=== PATIENT | female | born 1985 | race Caucasian/White ===

== ENCOUNTER 2018-02-26 05:57 | Inpatient (IN) ==
[2018-02-26] MEDS ORDERED: Metoclopramide 10 MG/2 ML VIAL IVP ONE (05:58)
[2018-02-26] MEDS ORDERED: Famotidine 20 MG/2 ML VIAL IVP ONE (05:58)
[2018-02-26] MEDS ORDERED: CeFAZolin Premix DUPLEX 2,000 MG/50 ML BAG IVPB ONE (05:58)
[2018-02-26] MEDS ORDERED: Ringers Solution, Lactated 1,000 ML IVC SCH ×2 (06:00→07:15)
[2018-02-26] MEDS ORDERED: Ringers Solution, Lactated 1,000 ML ONE (06:11)
[2018-02-26 06:37] LABS: Basophils % 0.4 %; Eosinophils % 0.4 %; Hematocrit 35.3 % (35.3-44.9); Immature Granulocytes % 0.5 % (0-4); Lymphocytes # 1.8 K/mcL (0.6-4.6); Lymphocytes % 21.7 %; Mean Corpuscular Hemoglobin 31.3 pg (28.0-33.3); Mean Corpuscular Volume 91.9 fL (83.0-100.0); Mean Platelet Volume 11.5 fL (9.4-12.4); Monocytes # 0.7 K/mcL (0.0-1.3); Monocytes % 8.1 %; Neutrophils # 5.6 K/mcL (1.6-8.9); Platelet Count 110 K/mcL (140-400); Red Blood Count 3.84 M/mcL (3.82-4.97); Red Cell Distribution Width 13.8 % (11.5-14.5); Segmented Neutrophils % 68.9 %
[2018-02-26 06:58] LABS: Amphetamine Screen,Urine Negative ng/mL (Cutoff=1000); Barbiturate Screen,Urine Negative ng/mL (Cutoff=200); Benzodiazepines Screen,Urine Negative ng/mL (Cutoff=300); Cannabinoid Screen,Urine Negative ng/mL (Cutoff = 50); Cocaine Screen,Urine Negative ng/mL (Cutoff= 300); Opiate Screen,Urine Negative ng/mL (Cutoff=300); Phencyclidine Screen,Urine Negative ng/mL (Cutoff=25)
--- NOTE | 2018-02-26 07:00 | OB/GYN History & Physical ---
Date of Encounter: 02/26/18 Time of Encounter: 06:58 Assessment and Plan (1) 38 weeks gestation of Current visit: Yes Status: Acute (2) Marginal placenta previa Current visit: Yes Status: Acute Informed consent previously obtained for primary section. All questions answered. History of Present Illness Chief complaint: scheduled c/s for placenta previa HPI: Ms. Leung is a 32 year old female G 2 P 1-0-0-1 at 38 0/7 weeks presents to labor and delivery for scheduled for marginal placenta previa. She has not had any vaginal bleeding, contractions, or leaking fluid. She reports good movement. A neg GBS negative Rubella immune Past Med Surg Social Fam HX - Past Medical History Source: patient Medical history: no medical history Psychiatric history: no psych history - Past Surgical History Surgical History: no surgical history Additional surgical history: EGD, Colonoscopy - Social History Smoking Status: Never smoker Alcohol use: none Drug use: none - Family History Father Adopted: No Family Member Ethnicity: Non- Living Status: Still Living Hx Family Cardiac Disorders: Yes (hypertension) Hx Family Respiratory Disorders: No Hx Family Cancer: No Hx Family GI Disorders: No Hx Family Genitourinary Disorders: No Hx Family Endocrine Disorder: No Hx Family Musculoskeletal Disorders: No Hx Family Neuromuscular Disorders: No Hx Family Neurologic Disorders: No Hx Family HEENT Disorders: No Hx Family Autoimmune Disorders: No Hx Family Reproductive Disorders: No Hx Family Psychosocial Disorders: No Hx Family Medical Disorders: No Obstetrical History - Pregnancies : 2 Para: 1 - History/Complications History/Complications: Placenta previa with this . RH negative-Rhogam received. Medications and Allergies Cetirizine HCl [Zyrtec] 10 mg PO DAILY 11/11/15 [History] Methylcellulose [Citrucel] 500 mg PO 11/11/15 [History] Pnv95/Ferrous Fumarate/FA [ Vitamin Tablet] 1 each PO DAILY 11/11/15 [History] Breast Pump [BREAST PUMP] 1 each .ROUTE AD #1 each 11/12/15 [Rx] Allergy/AdvReac Type Severity Reaction Status Date / Time Sulfa (Sulfonamide AdvReac Nausea Verified 11/11/15 05:26 Antibiotics) Review of System OB All systems PM: reviewed and no additional remarkable complaints except as stated Exam - Constitutional Constitutional: well developed, well nourished, no acute distress, average body habitus - HEENT HEENT: EOMI - Lungs Respiratory exam: CTAB - Cardiovascular Cardiovascular exam: RRR - Abdomen Abdomen: Present: bowel sounds normal, gravid, non tender - Extremities Extremities exam: normal inspection, warm Results Result Diagrams: 02/26/18 06:20 Abnormal lab results Plt Count 110 K/mcL (140-400) L 02/26/18 06:20 All other labs normal. - VTE Reasons for not Prescribing Prophylaxis: Treatment not Indicated - Low risk for VTE
--- NOTE | 2018-02-26 07:05 | Anesthesia Evaluation PreOp ---
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 History: Denies Any Significant HX Other Medical History: GERD, Other (Posterior placenta previa, history unexplained nausea) Anesthesia History: No Prior Anesthetic Complications, Past Anesthesia (EGD, Colonoscopy, previous epidural) : Yes Alcohol Use: none Drug use: none Medications and Allergies Cetirizine HCl [Zyrtec] 10 mg PO DAILY 11/11/15 [History] Methylcellulose [Citrucel] 500 mg PO 11/11/15 [History] Pnv95/Ferrous Fumarate/FA [ Vitamin Tablet] 1 each PO DAILY 11/11/15 [History] Breast Pump [BREAST PUMP] 1 each .ROUTE AD #1 each 11/12/15 [Rx] Allergy/AdvReac Type Severity Reaction Status Date / Time Sulfa (Sulfonamide AdvReac Nausea Verified 11/11/15 05:26 Antibiotics) - Meds/Allergy Pre-op Review Medications Reviewed: Yes Allergies Reviewed: Yes Beta Blockers on Current Med List: No Anesthesia Results - Labs 02/26/18 06:20 Anesthesia Exam BP 103/61 P 112 R 16 T 97.7 FHT 140s Height: 5'4" Weight: 80.8kg NPO (# of Hours): 12 hrs solids, 7 hrs water Pain Scale: 0 Pain Scale Used: Numeric (1 - 10) - HEENT Pupil (Motor): Pupils equal Mallampati: II Teeth: Normal Oral Opening: Greater than 3 - ROLLING MACHINE OPERATOR AUTOMATIC LOC: Oriented 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
[2018-02-26] MEDS ORDERED: Ondansetron 4 MG/2 ML VIAL IVP ONE (07:11)
[2018-02-26] MEDS ORDERED: *HR* OxyCODONE Immed Rel 5 MG TABLET PO PRN ×2 (07:11→11:21)
[2018-02-26] MEDS ORDERED: *HR* Promethazine 25 MG/ML VIAL IVP PRN ×2 (07:11→08:42)
[2018-02-26] MEDS ORDERED: Acetaminophen IV 1,000 MG/100 ML INFUS..BTL IVPB ONE ×2 (07:11→08:42)
[2018-02-26] MEDS ORDERED: *HR* Meperidine 25 MG/ML SYRINGE IVP PRN (07:11)
[2018-02-26] MEDS ORDERED: *HR* HYDROmorphone (PF) 1 MG/ML SYRINGE IVP PRN (07:11)
[2018-02-26] MEDS ORDERED: Bupivacaine/PF 0.75% in Dex 2 ML AMPUL INFILT ONE (07:27)
[2018-02-26] MEDS ORDERED: *HR* Morphine Sulfate/PF 10 MG/10 ML AMPUL ONE (07:38)
[2018-02-26] MEDS ORDERED: EPHEDrine 50 MG/ML VIAL ONE (07:50)
--- NOTE | 2018-02-26 07:56 | Anesthesia Procedures ---
Date of Encounter: 02/26/18 Time of Encounter: 07:44 Procedures: Anesthesia - Epidural/Spinal Patient ID/Chart reviewed: Yes Patient examined: Yes OB Eval: Gestational age: 38 weeks OB Eval: : 2 OB Eval: Hx Para: 1 OB Eval: Contractions: Non-stressed pattern Consent Obtained: Yes Supplemental Oxygen: None/Room Air Site Prep: Aseptic Technique, Sterile prep and drape, Povidone-Iodine 1% Patient position: upright Local Anesthetic: Lidocaine 1% Amount of Local Anesthetic used: 3 Interspace Used: L3-L4 Loss of Resistance (COSTA): No Blood: No CSF: Yes Paresthesia: No Spinal Needle Gauge: 25 Spinal Dose: Bupivicaine 0.75% 1.6ml Morphine 300mcg Procedure: Intrathecal dose administered 1st pass in upright position, positive CSF, without any immediate noted complications. Supine for procedure. VSS Vitals + FHT's: See anesthesia record
[2018-02-26] MEDS ORDERED: *HR* Oxytocin 10 UNIT/ML VIAL IM ONE ×2 (07:59→08:33)
[2018-02-26] MEDS ORDERED: *HR* OxyCODONE/APAP 5/325 TABLET PO PRN (08:42)
[2018-02-26] MEDS ORDERED: *HR* Morphine 2 MG/ML SYRINGE IVP PRN (08:42)
[2018-02-26] MEDS ORDERED: Ondansetron 4 MG/2 ML VIAL IVP PRN ×2 (08:42→11:21)
--- NOTE | 2018-02-26 08:58 | OB/GYN Procedure Note ---
Section - Date of procedure: 02/26/18 Preop diagnosis: other (marginal placenta previa) Post-op diagnosis: same Procedure: primary low transverse Surgeon: Basia Nagy Blood Loss: 300 Was there an medical assistant present: Yes Well Logging Captain: Krystyna Timmons Anesthesiologist: Kylie Rodgers Anesthesia Type: Spinal section complications: none Disposition: L&D Recovery Room Specimens: Placenta, Cord blood - (s) A Infant Delivery Date: 02/26/18 Delivery Time: 08:06 Presentation: vertex Gender: Male Viability: Viable Pounds: 6 Ounces: 1 Gram Weight: 2.755 kg at 1 minute: 9 at 5 minutes: 9 Specimens collected: cord blood Placenta: spontaneous Cord: nuchal cord, 3 umbilical vessels, nuchal reduced - Narrative Narrative: Patient was taken to the operative suite and placed under spinal anesthetic. She was then prepped and draped in normal sterile fashion in the dorsal supine position. Timeout was then performed. Antibiotics were given at room time. SCDs are on and active. Pfannenstiel skin incision is then made and carried through to underlying layer of fascia with the Bovie. The fascia was then incised in the midline and incision extended laterally with the Spears scissors. The fascia was tented up and dissected off the rectus muscles sharply. The rectus muscles were in the midline and the peritoneum was tented up and entered sharply with the Metzenbaum scissors. The peritoneal incision was then extended bluntly. The bladder blade was then inserted and the vesicouterine peritoneum was entered sharply. Bladder flap was created digitally. A low transverse uterine incision was then made. The infant vertex was brought to the incision and the infant was delivered using fundal pressure. There was a nuchal cord times 2 that was easily reduced. Cord was clamped and cut. Infant was handed to waiting nursery staff. Cord blood was collected. Placenta delivered spontaneously complete and intact with a three-vessel cord. The uterus was cleared of all clots and debris using moist laparotomy sponge. The uterine incision was then closed using 0 Vicryl in a running locked fashion. A second layer of the same suture was used to obtain excellent hemostasis. The abdomen was then cleared of all clots and debris using copious irrigation. The fascial incision was then closed using 0 Vicryl in a running fashion. The skin was closed using 4-0 Vicryl in a subcuticular fashion. Steri-Strips and sterile dressing are then placed. Mother and taken to recovery in stable condition.
[2018-02-26] MEDS ORDERED: Oxytocin 20 units/ LR 1000 mL 20 UNIT/1,000 ML BAG IVC ONE ×2 (09:40→10:38)
[2018-02-26] MEDS ORDERED: Naloxone 0.4 MG/ML INJ IVP PRN (11:21)
[2018-02-26] MEDS ORDERED: Rho Immune Globulin 1,500 UNIT SYRINGE IM PRN (11:21)
[2018-02-26] MEDS ORDERED: Acetaminophen 325 MG TABLET PO PRN (11:21)
[2018-02-26] MEDS ORDERED: Oxytocin 20 units/ LR 1000 mL 20 UNIT/1,000 ML BAG IVC SCH ×2 (11:21)
[2018-02-26] MEDS ORDERED: Sennosides 8.6 MG TABLET PO PRN (11:21)
[2018-02-26] MEDS ORDERED: Metoclopramide 10 MG/2 ML VIAL IVP PRN (11:21)
[2018-02-26] MEDS ORDERED: Prenatal Vit/FA 1 EACH TABLET PO SCH ×2 (11:21→21:00)
[2018-02-26] MEDS: Ibuprofen 600 MG TABLET PO PRN ×2 (12:58→19:00)
[2018-02-26] MEDS ORDERED: Psyllium 1 PACKET POWD.PACK PO SCH (21:00)
[2018-02-26] MEDS ORDERED: Loratadine 10 MG TABLET PO SCH (21:00)
--- NOTE | 2018-02-26 21:13 | Anesthesia Evaluation Post Op ---
Date of Encounter: 02/26/18 Time of Encounter: 10:00 - Vital Signs Vital Signs: 97.6 92 112/68 98% RA - Lungs Lungs: Clear Ascult./Percussion - Airway Airway: Non-obstructed - Cardiovascular Regular Rate - Mental Status Mental Status: Alert & Oriented, Answers Appropriately - Pain Pain Scale: 0 - Nausea Vomiting Nausea Vomiting: Not Present - Hydration Hydration: NPO, Doll catheter - Discharge PostOp Status: Transfer Patient to floor
[2018-02-26] MEDS: Simethicone 80 MG TAB.CHEW PO PRN (21:35)
[2018-02-27] MEDS: *HR* OxyCODONE/APAP 5/325 TABLET PO PRN ×2 (03:04→12:19)
[2018-02-27] MEDS: Ibuprofen 600 MG TABLET PO PRN (08:09)
[2018-02-27 08:49] VITALS: BP 114/73
--- NOTE | 2018-02-27 11:53 | Discharge Summary ---
Date of Encounter: 02/27/18 Time of Encounter: 11:49 - Discharge Diagnosis (1) Status post primary low transverse section Priority: Primary Status: Acute Comments: Continue routine postop/ care discharge home today per patient request follow up with Dr. Rayo in 2 weeks for incision check (2) Breast feeding status of mother Priority: Secondary Status: Acute Comments: support prn - Discharge Medications Prescriptions: OxyCODONE/APAP 5/325 [Percocet 5/325 MG] 1 each PO Q4HR PRN 5 Days #30 tablet PRN Reason: Moderate pain 4-6 Ibuprofen [Motrin] 600 mg PO Q6HR PRN #60 tablet PRN Reason: Cramping Home Medications: Pnv95/Ferrous Fumarate/FA [ Vitamin Tablet] 1 each PO DAILY 11/11/15 [History] Docusate [Colace] 100 mg PO BID capsule 02/27/18 [Rx] Ibuprofen [Motrin] 600 mg PO Q6HR PRN #60 tablet 02/27/18 [Rx] OxyCODONE/APAP 5/325 [Percocet 5/325 MG] 1 each PO Q4HR PRN 5 Days #30 tablet 02/27/18 [Rx] Simethicone [Gas-X] 80 mg PO TID PRN tab.chew 02/27/18 [Rx] Allergies/Adverse Reactions: Allergy/AdvReac Type Severity Reaction Status Date / Time Sulfa (Sulfonamide AdvReac Nausea Verified 11/11/15 05:26 Antibiotics) Data Procedures and tests throughout hospitalization: Laboratory Tests 02/26/18 02/26/18 02/26/18 06:20 06:20 06:20 WBC 8.2 RBC 3.84 Hgb 12.0 Hct 35.3 MCV 91.9 MCH 31.3 MCHC 34.0 RDW 13.8 Plt Count 110 L MPV 11.5 Immature Gran % 0.5 Seg Neutrophils % 68.9 Lymphocytes % 21.7 Monocytes % 8.1 Eosinophils % 0.4 Basophils % 0.4 Neutrophils # 5.6 Lymphocytes # 1.8 Monocytes # 0.7 Eosinophils # 0.0 Basophils # 0.0 Urine Opiates Screen Negative Ur Barbiturates Screen Negative Ur Phencyclidine Scrn Negative Ur Amphetamines Screen Negative U Benzodiazepines Scrn Negative Urine Cocaine Screen Negative U Marijuana (THC) Screen Negative Ur Drug Screen Interp See Below Hep Bs Antigen Nonreactive Screen Baby's Blood Type Mother's Blood Type Rhogam Indicated Rhogam Req for Mother 02/26/18 09:20 WBC RBC Hgb Hct MCV MCH MCHC RDW Plt Count MPV Immature Gran % Seg Neutrophils % Lymphocytes % Monocytes % Eosinophils % Basophils % Neutrophils # Lymphocytes # Monocytes # Eosinophils # Basophils # Urine Opiates Screen Ur Barbiturates Screen Ur Phencyclidine Scrn Ur Amphetamines Screen U Benzodiazepines Scrn Urine Cocaine Screen U Marijuana (THC) Screen Ur Drug Screen Interp Hep Bs Antigen Screen NEGATIVE Baby's Blood Type A RH POSITIVE Mother's Blood Type A RH NEGATIVE Rhogam Indicated YES Rhogam Req for Mother 1 Labs on day of discharge: Labs from last 24 hours 02/26/18 09:20 Screen NEGATIVE Baby's Blood Type A RH POSITIVE Mother's Blood Type A RH NEGATIVE Rhogam Indicated YES Rhogam Req for Mother 1 Date of admission: 02/26/18 05:57 Primary care physician: Angie Hernandez MD Discharging clinician: Bailey Moreno Anticipated date of discharge: 02/27/18 - Patient Status Disposition: Home, Self-Care Condition: Good Functional capacity at discharge: independent ambulation - Discharge Instructions Follow Up With: Angie Hernandez MD [Primary Care Provider] - Basia Rayo DO [Partnered Physician] - - Diet and Activity Activity: increase activity as tolerated Diet: regular diet Hospital Course Procedures: OARRS report reviewed by ROM Mcdaniel Reason for admission: section Delivery: section Episiotomy: none Laceration: none Other procedures: none complications: none Discharge diagnosis: IUP at term delivered [place] baby: male (breast feeding) Time Attestation: Total time spent providing and/or coordinating discharge services: Time Spent: Less than 30 minutes - VTE Reasons for not Prescribing Prophylaxis: Treatment not Indicated - Low risk for VTE Documentation of Mechanical Device: Intermittent pneumatic compression device Exam - Constitutional Vitals: Temp Pulse Resp BP Pulse Ox 98.5 F 99 14 114/73 97 02/27/18 08:48 02/27/18 08:48 02/27/18 08:48 02/27/18 08:48 02/27/18 08:48 General appearance IM: A&O X 3, pleasant, answers questions appropriately - Respiratory Respiratory exam: Present: CTAB - Cardiovascular Cardiovascular exam IM: Present: RRR, +S1, +S2 - GI/Abdominal GI/Abdominal exam IM: normal bowel sounds Incision: normal, dry, dressed (medipore dressing) - Uterine Tone: Firm Uterus Position: At Umbilicus, Midline - Extremities Exam Extremities exam IM: Present: full ROM, normal capillary refill, normal inspect ion - Neurological Exam Neurological exam: alert, oriented X3, reflexes normal
[2018-02-27] MEDS: Simethicone 80 MG TAB.CHEW PO PRN (12:20)
== END 2018-02-27 15:10 | disposition home or self-care (01) | DRG 788 ==
LOC: 1NENULAB 05:57 → 1NENUOBS 11:20
PROVIDERS: ADMIT Obstetrics & Gynecology; ATTEND Obstetrics & Gynecology

== ENCOUNTER → 2021-01-13 17:52 | Observation (INO) | END | disposition home or self-care (01) | LOC: 1NENULAB | PROVIDERS: ADMIT Registered Nurse; ATTEND Registered Nurse ==

== ENCOUNTER 2021-01-13 21:32 | Inpatient (IN) ==
[~2021-01-13 21:32] MED LIST: Famotidine 20 MG/2 ML VIAL IVP PRN; Lidocaine 1% 20 ML MDV INFILT PRN; Metoclopramide 10 MG/2 ML VIAL IVP PRN; Naloxone 0.4 MG/ML INJ IVP PRN
[2021-01-13] MEDS ORDERED: *HR* Nalbuphine 10 MG/ML AMPUL ONE (21:35)
[2021-01-13] MEDS ORDERED: Ringers Solution, Lactated 1,000 ML ONE (21:36)
[2021-01-13] MEDS ORDERED: Ringers Solution, Lactated 1,000 ML IVC SCH (21:45)
[2021-01-13 22:31] LABS: Immature Granulocytes % 0.4 % (0-4); Mean Corpuscular HGB Conc 34.1 g/dL (31.6-35.5); Monocytes % 5.5 %; Red Cell Distribution Width 13.1 % (11.5-14.5)
[2021-01-13 22:33] LABS: Basophils % 0.3 %; Eosinophils % 0.1 %; Hematocrit 36.9 % (35.3-44.9); Hemoglobin 12.6 g/dL (11.5-15.4); Immature Platelets 10.4 % (1.1-6.1); Lymphocytes % 9.4 %; Mean Corpuscular Hemoglobin 31.7 pg (28.0-33.3); Mean Corpuscular Volume 92.9 fL (83.0-100.0); Mean Platelet Volume 11.9 fL (9.4-12.4); Monocytes # 0.6 K/mcL (0.0-1.3); Neutrophils # 8.6 K/mcL (1.6-8.9); Platelet Count 152 K/mcL (140-400); Red Blood Count 3.97 M/mcL (3.82-4.97); Segmented Neutrophils % 84.3 %; White Blood Count 10.2 K/mcL (4.3-11.1)
[2021-01-13] MEDS ORDERED: Oxytocin 20 units/ LR 1000 mL 20 UNIT/1,000 ML BAG IVC ONE (22:59)
[2021-01-13 23:09] LABS: Platelet Estimate Normal (Normal)
[2021-01-14] MEDS: Ibuprofen 600 MG TABLET PO SCH ×4 (01:28→22:03)
[2021-01-14] MEDS: Acetaminophen 325 MG TABLET PO SCH ×3 (01:28→19:57)
[2021-01-14] MEDS ORDERED: Oxytocin 20 units/ LR 1000 mL 20 UNIT/1,000 ML BAG IVC SCH (01:55)
[2021-01-14] MEDS ORDERED: Ondansetron ODT 4 MG TAB.RAPDIS SL PRN (01:55)
[2021-01-14] MEDS ORDERED: *HR* OxyCODONE Immed Rel 5 MG TABLET PO PRN (01:55)
[2021-01-14] MEDS ORDERED: Benzocaine/Menthol 56 GM AEROSOL SPRAY TP PRN (01:55)
[2021-01-14] MEDS ORDERED: Rho Immune Globulin 1,500 UNIT SYRINGE IM PRN (01:55)
[2021-01-14] MEDS ORDERED: Lanolin 7 G OINT...G. TP PRN (01:55)
[2021-01-14 05:09] LABS: Basophils % 0.2 %
[2021-01-14 05:11] LABS: Hematocrit 31.2 % (35.3-44.9); Hemoglobin 10.7 g/dL (11.5-15.4); Immature Granulocytes % 0.5 % (0-4); Immature Platelets 9.1 % (1.1-6.1); Lymphocytes % 9.8 %; Mean Corpuscular HGB Conc 34.3 g/dL (31.6-35.5); Mean Corpuscular Hemoglobin 32.2 pg (28.0-33.3); Mean Platelet Volume 11.7 fL (9.4-12.4); Monocytes # 0.7 K/mcL (0.0-1.3); Monocytes % 6.5 %; Neutrophils # 8.8 K/mcL (1.6-8.9); Platelet Count 126 K/mcL (140-400); Red Blood Count 3.32 M/mcL (3.82-4.97); White Blood Count 10.6 K/mcL (4.3-11.1)
[2021-01-14] MEDS ORDERED: Prenatal Vit/FA 1 EACH TABLET PO SCH (09:00)
[2021-01-14 09:06] VITALS: O2SAT 100
[2021-01-14] MEDS ORDERED: Loratadine 10 MG TABLET PO SCH (14:00)
[2021-01-14 21:46] VITALS: BP 130/78; PULSE 77; TEMP 98.5
== END 2021-01-14 22:30 | disposition home or self-care (01) | DRG 806 ==
LOC: 1NENULAB → 1NENUOBS 01-14 01:53
PROVIDERS: ADMIT Obstetrics & Gynecology; ATTEND Obstetrics & Gynecology